=== PATIENT | female | born 1960 | race Caucasian/White ===

== ENCOUNTER 2021-11-22 11:56 | Day surgery (SDC) | payer MEDICARE, MEDICAID ==
[2021-11-22 15:26] LABS: CSF Source CSF; Clarity Clear (Clear); Tube # 4
[2021-11-22 15:31] VITALS: BP 127/83
[2021-11-22 15:50] LABS: CSF, Glucose 124 mg/dl (40-70); CSF, Protein 51 mg/dL (15-40)
== END 2021-11-22 15:40 | disposition home or self-care (01) ==
LOC: RAD 11:56
PROVIDERS: ATTEND Surgery
PROC: 009U3ZX Drainage of Spinal Canal, Percutaneous Approach, Diagnostic (ICD-10-PCS; principal; 2021-11-22)
DX: G91.2 (Idiopathic) normal pressure hydrocephalus (principal); Z79.4 Long term (current) use of insulin; Z79.84 Long term (current) use of oral hypoglycemic drugs; Z79.899 Other long term (current) drug therapy; Z88.2 Allergy status to sulfonamides; Z88.5 Allergy status to narcotic agent
CPT/HCPCS: 62270; 82945; 84157; 87070; 87205; 89051

== ENCOUNTER 2022-02-04 11:15 | Inpatient (IN) | payer OTHER, MEDICAID ==
[2022-02-06 14:14] VITALS: BMI 41.0
[2022-02-07] MEDS ORDERED: Lidocaine 0.5%/Epinephrine 1:200,000 50 ml Vial ONE (06:44)
[2022-02-07] MEDS ORDERED: Bupivacaine/Epinephrine 0.25% 30 ML VIAL ONE (06:44)
[2022-02-07] MEDS ORDERED: Bacitracin Zinc Ointment 30 gm TUBE ONE (06:44)
[2022-02-07] MEDS ORDERED: fentaNYL Citrate/PF 100 MCG/2 ML SYRINGE ONE (06:51)
[2022-02-07] MEDS ORDERED: Sodium Chloride 0.9% 100 ML ONE (07:21)
[2022-02-07] MEDS ORDERED: CEFAZOLIN 2 GM VIAL ONE (07:21)
[2022-02-07] MEDS ORDERED: Midazolam HCl 2 mg/2 ml Vial ONE (07:23)
[2022-02-07] MEDS ORDERED: Scopolamine 1.5 mg/72 hour Patch ONE (07:32)
[2022-02-07] MEDS ORDERED: Albuterol Sulfate HFA (OR ONLY) ONE (07:38)
[2022-02-07] MEDS ORDERED: hydrALAZINE 20 MG/ML VIAL SLOW IVP PRN (07:58)
[2022-02-07] MEDS ORDERED: Cepastat Lozenges 1 LOZ PO PRN (07:58)
[2022-02-07] MEDS ORDERED: ceFAZolin 2 GM/Dextrose 50 ML 2 GM in Premix Bag 1 BAG IVPB SCH (08:00)
[2022-02-07] MEDS ORDERED: HYDROcodone/Acetaminophen 5/325 mg Tablet PO PRN (08:07)
[2022-02-07] MEDS ORDERED: traMADol HCl 50 MG TAB PO PRN (08:07)
[2022-02-07] MEDS ORDERED: Fentanyl 100 MCG/2 ML VIAL SLOW IVP PRN (08:08)
[2022-02-07] MEDS ORDERED: Non-Formulary Item 1 EACH (Benzonatate [Benzonatate] 200 MG Capsule) PO PRN (08:09)
[2022-02-07] MEDS ORDERED: Albuterol Sulfate 2.5 mg/3 ml Neb NEB PRN ×2 (08:09→08:35)
[2022-02-07] MEDS ORDERED: ALPRAZolam 1 MG TAB PO PRN (08:09)
[2022-02-07] MEDS ORDERED: Promethazine HCl 12.5 MG in Sodium Chloride 0.9% 50 ML IVPB PRN (08:09)
[2022-02-07] MEDS ORDERED: Non-Formulary Item 1 EACH (Albuterol Sulfate Hfa (Or) 200 PUFF Inh) INH PRN (08:09)
[2022-02-07] MEDS ORDERED: PROPOFOL 200 MG/20 ML VIAL ONE (08:12)
[2022-02-07] MEDS ORDERED: Ondansetron PF 4 MG/2 ML Vial ONE (08:12)
[2022-02-07] MEDS ORDERED: Lidocaine 1% PF 5 ML VIAL ONE (08:12)
[2022-02-07] MEDS ORDERED: Dexamethasone 20 MG/5 ML VIAL ONE (08:12)
[2022-02-07] MEDS ORDERED: Rocuronium Bromide 10 MG/ML (10ML VIAL) ONE (08:12)
[2022-02-07] MEDS ORDERED: Glycopyrrolate 0.2 MG/ML 5 ML SYRINGE ONE (08:12)
[2022-02-07] MEDS ORDERED: ePHEDrine 50 MG/ML VIAL ONE (08:12)
[2022-02-07] MEDS ORDERED: Benzonatate 100 MG CAP PO PRN (08:35)
[2022-02-07] MEDS ORDERED: Non-Formulary Item 1 EACH (Fluticasone Propionate [Flonase Allergy Relief] 9.9 ML Bottle) EA NARE SCH (09:00)
[2022-02-07] MEDS ORDERED: Non-Formulary Item 1 EACH (Valacyclovir Hcl [Valacyclovir] 1,000 MG Tablet) PO SCH (09:00)
[2022-02-07] MEDS ORDERED: Insulin Glargine 30 UNITS/0.3 ML VIAL SC SCH (09:00)
[2022-02-07] MEDS ORDERED: Non-Formulary Item 1 EACH (Insulin Degludec [Tresiba Flextouch U-200] 200 UNIT/ML Insuln. SQ SCH (09:00)
[2022-02-07] MEDS ORDERED: Ergocalciferol 1.25 MG(50,000 UNITS) CAP PO SCH (09:00)
[2022-02-07] MEDS ORDERED: Non-Formulary Item 1 EACH (Fluticasone/Vilanterol [Breo Ellipta] 100 MCG/25 MCG Blst.W.De INH SCH (09:00)
[2022-02-07] MEDS ORDERED: Non-Formulary Item 1 EACH (Magnesium Oxide [Magnesium] 400 MG Tablet) PO SCH (09:00)
[2022-02-07] MEDS ORDERED: Non-Formulary Item 1 EACH (Omeprazole [Omeprazole] 40 MG Capsule.Dr) PO SCH (09:00)
[2022-02-07] MEDS ORDERED: Non-Formulary Item 1 EACH (Losartan/Hydrochlorothiazide [Losartan-Hctz 100-12.5 Mg Tab] 1 PO SCH (09:00)
[2022-02-07] MEDS ORDERED: Non-Formulary Item 1 EACH (Metformin Hcl [Metformin Er Gastric] 1,000 MG Tabergr24h) PO SCH (09:00)
[2022-02-07] MEDS ORDERED: Ondansetron HCl/PF 4 MG/2 ML Vial IVP PRN (10:12)
[2022-02-07] MEDS ORDERED: Promethazine HCl 25 MG/ML VIAL IM PRN (10:12)
[2022-02-07] MEDS ORDERED: Promethazine HCl 25 MG/ML VIAL IVPB PRN (10:12)
[2022-02-07] MEDS ORDERED: Fentanyl 100 MCG/2 ML VIAL ONE (11:24)
[2022-02-07] MEDS ORDERED: CEFAZOLIN 2 GM in Sodium Chloride 0.9% 100 ML IVPB SCH ×2 (14:00→22:00)
[2022-02-07] MEDS: Sodium Chloride 0.9% 1,000 ML IV SCH ×2 (15:12→21:02)
[2022-02-07] MEDS: Amlodipine 10 MG TAB PO SCH (15:12)
[2022-02-07] MEDS: glipiZIDE 10 MG TAB PO SCH ×2 (15:13→20:57)
[2022-02-07] MEDS: Losartan 25 MG TAB PO SCH (15:13)
[2022-02-07] MEDS: Citalopram 20 MG TAB PO SCH (15:13)
[2022-02-07] MEDS: Fluticasone Propionate Nasal Spray 16 gm Bottle NASAL SCH ×2 (15:13)
[2022-02-07] MEDS: Hydrochlorothiazide 25 MG TAB PO SCH (15:13)
[2022-02-07] MEDS: valACYclovir 500 MG TAB PO SCH (15:14)
[2022-02-07] MEDS: Magnesium Oxide 400 MG TAB PO SCH (15:14)
[2022-02-07] MEDS: Oxybutynin 5 MG TAB PO SCH (15:14)
[2022-02-07] MEDS: metFORMIN 500 MG TAB PO SCH ×2 (15:14→20:57)
[2022-02-07] MEDS: CEFAZOLIN 2 GM in Sodium Chloride 0.9% 100 ML IVPB SCH (16:16)
[2022-02-07] MEDS: Mometasone 100 MCG/Formoterol 5 MCG 120 PUFF INHALER INH SCH (19:11)
[2022-02-07] MEDS: Acetaminophen 325 MG TAB PO PRN (20:57)
[2022-02-07] MEDS ORDERED: Atorvastatin Calcium 20 MG TAB PO SCH (21:00)
[2022-02-07] MEDS ORDERED: Non-Formulary Item 1 EACH (Pravastatin Sodium [Pravastatin Sodium] 80 MG Tablet) PO SCH (21:00)
[2022-02-08] MEDS: CEFAZOLIN 2 GM in Sodium Chloride 0.9% 100 ML IVPB SCH ×2 (00:07→10:10)
[2022-02-08] MEDS: Mometasone 100 MCG/Formoterol 5 MCG 120 PUFF INHALER INH SCH (06:55)
[2022-02-08] MEDS: metFORMIN 500 MG TAB PO SCH (10:07)
[2022-02-08] MEDS: Magnesium Oxide 400 MG TAB PO SCH (10:08)
[2022-02-08] MEDS: Losartan 25 MG TAB PO SCH (10:08)
[2022-02-08] MEDS: valACYclovir 500 MG TAB PO SCH (10:08)
[2022-02-08] MEDS: Hydrochlorothiazide 25 MG TAB PO SCH (10:09)
[2022-02-08] MEDS: Amlodipine 10 MG TAB PO SCH (10:09)
[2022-02-08] MEDS: Citalopram 20 MG TAB PO SCH (10:10)
[2022-02-08] MEDS: glipiZIDE 10 MG TAB PO SCH (10:10)
[2022-02-08] MEDS: Oxybutynin 5 MG TAB PO SCH (10:10)
[2022-02-08 11:58] VITALS: TEMP 98.2
[2022-02-08] MEDS: Acetaminophen 325 MG TAB PO PRN (14:10)
[2022-02-08] MEDS: Fluticasone Propionate Nasal Spray 16 gm Bottle NASAL SCH ×2 (14:11)
[2022-02-08] MEDS: Sodium Chloride 0.9% 1,000 ML IV SCH (14:13)
[2022-02-08 15:53] VITALS: BP 112/69
== END 2022-02-08 16:50 | disposition home or self-care (01) | DRG 33 ==
LOC: SURG A 02-07 06:36
PROVIDERS: ADMIT Surgery; ATTEND Surgery
PROC: 00160J6 Bypass Cerebral Ventricle to Peritoneal Cavity with Synthetic Substitute, Open Approach (ICD-10-PCS; principal; 2022-02-07)
DX: G91.2 (Idiopathic) normal pressure hydrocephalus (principal); Z20.822 Contact with and (suspected) exposure to COVID-19; M54.50 Low back pain, unspecified; M54.2 Cervicalgia; N28.1 Cyst of kidney, acquired; M48.062 Spinal stenosis, lumbar region with neurogenic claudication; M71.30 Other bursal cyst, unspecified site; I35.0 Nonrheumatic aortic (valve) stenosis; G47.33 Obstructive sleep apnea (adult) (pediatric); F17.210 Nicotine dependence, cigarettes, uncomplicated; E11.42 Type 2 diabetes mellitus with diabetic polyneuropathy; E11.51 Type 2 diabetes mellitus with diabetic peripheral angiopathy without gangrene; E78.2 Mixed hyperlipidemia; I10 Essential (primary) hypertension; J44.9 Chronic obstructive pulmonary disease, unspecified; E55.9 Vitamin D deficiency, unspecified; F41.1 Generalized anxiety disorder; Z88.2 Allergy status to sulfonamides; Z88.5 Allergy status to narcotic agent; Z88.6 Allergy status to analgesic agent; Z79.82 Long term (current) use of aspirin; Z88.8 Allergy status to other drugs, medicaments and biological substances; Z79.899 Other long term (current) drug therapy; Z79.84 Long term (current) use of oral hypoglycemic drugs; Z79.4 Long term (current) use of insulin; Z90.710 Acquired absence of both cervix and uterus; Z98.51 Tubal ligation status; Z83.3 Family history of diabetes mellitus
CPT/HCPCS: 36416; 70450; 80048; 85027; 85610; 85730; 87811; C1729; C1750; C1751; J0690; J1100; J2001; J2250; J2405; J2704; J2710; J3010; J3370; J3490; J7050

== ENCOUNTER 2022-02-04 11:17 | Outpatient (CLI) | payer MEDICARE, MEDICAID ==
[2022-02-04 12:30] LABS: Hemoglobin 10.4 g/dL (12.0-15.5); Mean Corpuscular HGB CONC 32.8 g/dL (32.0-36.0); Mean Corpuscular Hemoglobin 28.7 pg (27.0-33.0); Mean Corpuscular Volume 87.3 fl (81.6-98.3); Mean Platelet Volume 9.7 fl (7.4-10.4); Platelet Count 387 10x3/uL (150-450); RBC Distribution Width 14.4 % (11.5-14.5); Red Blood Cell (RBC) Count 3.63 10x6/uL (3.90-5.03); White Blood Cell (WBC) Count 10.5 10x3/uL (3.5-10.5)
[2022-02-04 12:53] LABS: PTT 26.7 sec (22.0-33.0); Prothrombin Time 10.7 sec (9.5-12.1)
[2022-02-04 12:55] LABS: Anion Gap 17 mmol/L (10-20); BUN (Urea Nitrogen) 16 mg/dL (9.8-20.1); Calc. Creatinine Clearance 0 mL/min (70-130); Calcium 9.4 mg/dL (7.8-10.44); Carbon Dioxide 24 mmol/L (23-31); Chloride 102 mmol/L (98-107); Estimated GFR 63; Glucose 117 mg/dL (80-115); Potassium 4.2 mmol/L (3.5-5.1); Sodium 139 mmol/L (136-145)
== END 2022-02-04 11:18 | disposition home or self-care (01) ==
LOC: LABBT 11:17
PROVIDERS: ATTEND Surgery
DX: Z01.812 Encounter for preprocedural laboratory examination (principal); G91.9 Hydrocephalus, unspecified; Z20.822 Contact with and (suspected) exposure to COVID-19
CPT/HCPCS: 80048; 85027; 85610; 85730; 87811

== ENCOUNTER 2022-03-12 12:39 | Outpatient (CLI) | payer OTHER | END 2022-03-12 12:40 | disposition home or self-care (01) | LOC: CT 12:39 | PROVIDERS: ATTEND Surgery | DX: G91.9 Hydrocephalus, unspecified (principal); Z98.2 Presence of cerebrospinal fluid drainage device | CPT/HCPCS: 70450 ==

== ENCOUNTER 2022-04-04 14:07 | Outpatient (CLI) | payer OTHER, MEDICAID | END 2022-04-04 14:08 | disposition home or self-care (01) | LOC: CT 14:07 | PROVIDERS: ATTEND Surgery | DX: I62.00 Nontraumatic subdural hemorrhage, unspecified (principal) | CPT/HCPCS: 70450 ==

== ENCOUNTER 2022-05-15 07:46 | Outpatient (CLI) | payer OTHER | END 2022-05-15 07:47 | disposition home or self-care (01) | LOC: CT 07:46 | PROVIDERS: ATTEND Surgery | DX: I62.02 Nontraumatic subacute subdural hemorrhage (principal); R29.6 Repeated falls; G93.89 Other specified disorders of brain | CPT/HCPCS: 70450 ==

== ENCOUNTER 2022-05-15 09:05 | Outpatient (CLI) | payer OTHER | END 2022-05-15 09:06 | disposition home or self-care (01) | LOC: TBSIIMAG 09:05 | PROVIDERS: ATTEND Surgery | DX: M47.816 Spondylosis without myelopathy or radiculopathy, lumbar region (principal); M51.36 Other intervertebral disc degeneration, lumbar region; M43.8X6 Other specified deforming dorsopathies, lumbar region | CPT/HCPCS: 72110; 72148 ==

== ENCOUNTER 2022-05-15 11:29 | Inpatient (IN) | payer OTHER, MEDICAID ==
[2022-05-15] MEDS ORDERED: fentaNYL PF 100 MCG/2 ML SYRINGE ONE (12:12)
[2022-05-15] MEDS ORDERED: Bupivacaine HCl 0.5%/Epinephrine 1:200,000/PF 30 ml Vial ONE (12:17)
[2022-05-15] MEDS ORDERED: Thrombin 5000 UNITS/5 ML VIAL ONE (12:17)
[2022-05-15] MEDS ORDERED: Bacitracin Zinc Ointment 30 gm TUBE ONE (12:17)
[2022-05-15] MEDS ORDERED: Ondansetron PF 4 MG/2 ML Vial ONE (13:07)
[2022-05-15] MEDS ORDERED: NEOSTIGMINE 3 MG/3 ML SYR 3 MG/3 ML SYRINGE ONE (13:07)
[2022-05-15] MEDS ORDERED: PROPOFOL 200 MG/20 ML VIAL ONE (13:07)
[2022-05-15] MEDS ORDERED: Rocuronium Bromide 10 MG/ML (10ML VIAL) ONE (13:07)
[2022-05-15] MEDS ORDERED: ePHEDrine 50 MG/ML VIAL ONE (13:07)
[2022-05-15] MEDS ORDERED: Glycopyrrolate 0.2 MG/ML 5 ML SYRINGE ONE (13:07)
[2022-05-15] MEDS ORDERED: PHENYLEPHRINE-NS 100 MCG/ML 10 ML SYRINGE ONE (13:07)
[2022-05-15 13:20] LABS: SARS-CoV-2 NAA Rapid Test Not Detected (NotDetected)
[2022-05-15] MEDS ORDERED: Insulin Regular 300 UNITS/3 ML VIAL ONE (13:31)
[2022-05-15] MEDS ORDERED: HYDROcodone/Acetaminophen 7.5/325 mg Tablet PO PRN (13:38)
[2022-05-15] MEDS ORDERED: Acetaminophen 325 MG TAB PO PRN (13:42)
[2022-05-15] MEDS ORDERED: hydrALAZINE 20 MG/ML VIAL SLOW IVP PRN (13:42)
[2022-05-15] MEDS ORDERED: traMADol HCl 50 MG TAB PO PRN (13:45)
[2022-05-15] MEDS ORDERED: Promethazine HCl 12.5 MG in Sodium Chloride 0.9% 50 ML IVPB PRN (13:45)
[2022-05-15] MEDS ORDERED: Albuterol Sulfate 2.5 mg/3 ml Neb NEB PRN (13:46)
[2022-05-15] MEDS ORDERED: Non-Formulary Item 1 EACH (Albuterol Sulfate Hfa (Or) 200 PUFF Inh) INH PRN (13:46)
[2022-05-15] MEDS ORDERED: Benzonatate 100 MG CAP PO PRN (14:11)
[2022-05-15] MEDS ORDERED: Ondansetron HCl/PF 4 MG/2 ML Vial IVP PRN (14:57)
[2022-05-15] MEDS ORDERED: Promethazine HCl 25 MG/ML VIAL IM PRN (14:57)
[2022-05-15] MEDS ORDERED: Promethazine HCl 25 MG/ML VIAL IVPB PRN (14:57)
[2022-05-15] MEDS ORDERED: levETIRAcetam in NS 1,000 MG in Premix Bag 1 BAG IVPB SCH (15:00)
[2022-05-15] MEDS ORDERED: HUMULIN R 100 UNITS in Sodium Chloride 0.9% 100 ML IVPB SCH (15:00)
[2022-05-15] MEDS ORDERED: diphenhydrAMINE 25 MG CAP PO PRN (15:47)
[2022-05-15] MEDS ORDERED: FENTANYL 50 MCG/ML 1 ML VIAL ONE ×2 (15:51→18:27)
[2022-05-15] MEDS ORDERED: levETIRAcetam 500 MG/5 ML VIAL SLOW IVP SCH (16:15)
[2022-05-15 20:33] VITALS: BMI 41.3
[2022-05-15] MEDS: glipiZIDE 10 MG TAB PO SCH (21:31)
[2022-05-15] MEDS: CEFAZOLIN 2 GM in Sodium Chloride 0.9% 100 ML IVPB SCH ×2 (21:34→23:07)
[2022-05-15] MEDS: metFORMIN 500 MG TAB PO SCH (21:35)
[2022-05-15] MEDS: Sodium Chloride 0.9% 1,000 ML IV SCH (22:05)
[2022-05-15] MEDS: levETIRAcetam 500 MG TAB PO SCH (22:05)
[2022-05-15] MEDS: Atorvastatin Calcium 20 MG TAB PO SCH (22:06)
[2022-05-16 04:04] LABS: #Basophils 0.1 thou/uL (0.0-0.2); #Eosinphils 0.2 thou/uL (0.0-0.7); #Lymphocytes 2.5 thou/uL (1.20-3.40); #Monocytes 0.6 thou/uL (0.11-0.59); #Neutrophils 9.2 thou/uL (1.40-6.50); %Basophils 0.5 % (0.0-1.0); %Lymphocytes 19.5 % (21.0-51.0); %Neutrophils 73.1 % (42.0-75.0); Hemoglobin 9.9 g/dL (12.0-16.0); Mean Corpuscular HGB CONC 31.5 g/dL (32.0-36.0); Mean Corpuscular Hemoglobin 28.8 pg (27.0-31.0); Mean Corpuscular Volume 91.4 fl (78.0-98.0); Mean Platelet Volume 8.3 fL (7.4-10.4); Platelet Count 285 thou/uL (130-400); RBC Distribution Width 14.2 % (11.5-14.5); Red Blood Cell (RBC) Count 3.45 mill/uL (4.20-5.40); White Blood Cell (WBC) Count 12.6 thou/uL (4.8-10.8)
[2022-05-16 04:29] LABS: Anion Gap 12 mmol/L (10-20); BUN (Urea Nitrogen) 13 mg/dL (9.8-20.1); Calc. Creatinine Clearance 79 mL/min (70-130); Calcium 8.7 mg/dL (7.8-10.44); Carbon Dioxide 26 mmol/L (23-31); Chloride 105 mmol/L (98-107); Estimated GFR 55; Glucose 169 mg/dL (80-115); Potassium 3.8 mmol/L (3.5-5.1); Sodium 139 mmol/L (136-145)
[2022-05-16] MEDS: Sodium Chloride 0.9% 1,000 ML IV SCH ×2 (05:25→15:56)
[2022-05-16] MEDS: Mometasone 100 MCG/Formoterol 5 MCG 120 PUFF INHALER INH SCH (06:29)
[2022-05-16] MEDS: CEFAZOLIN 2 GM in Sodium Chloride 0.9% 100 ML IVPB SCH ×3 (08:04→23:32)
[2022-05-16] MEDS: levETIRAcetam 500 MG TAB PO SCH ×2 (08:07→20:19)
[2022-05-16] MEDS: Magnesium Oxide 400 MG TAB PO SCH (08:10)
[2022-05-16] MEDS: glipiZIDE 10 MG TAB PO SCH ×2 (08:27→19:38)
[2022-05-16] MEDS: Fluticasone Propionate Nasal Spray 16 gm Bottle NASAL SCH (08:27)
[2022-05-16] MEDS: metFORMIN 500 MG TAB PO SCH (08:27)
[2022-05-16] MEDS: Citalopram 20 MG TAB PO SCH (08:28)
[2022-05-16] MEDS: Amlodipine 10 MG TAB PO SCH (08:28)
[2022-05-16] MEDS: Oxybutynin 5 MG TAB PO SCH (08:32)
[2022-05-16] MEDS ORDERED: Labetalol HCl 100 MG/20 ML VIAL SLOW IVP PRN (08:49)
[2022-05-16] MEDS ORDERED: Hydrochlorothiazide 25 MG TAB PO SCH (09:00)
[2022-05-16] MEDS ORDERED: Electrolyte Replacement Protocol FS PRN (09:00)
[2022-05-16] MEDS ORDERED: FLU VACC QS2022-23(6MOS UP)/PF 60 MCG/0.5 ML SYRINGE IM ONE (09:00)
[2022-05-16] MEDS ORDERED: Losartan 25 MG TAB PO SCH (09:00)
[2022-05-16] MEDS ORDERED: Insulin Glargine 30 UNITS/0.3 ML VIAL SC SCH (09:00)
[2022-05-16] MEDS: valACYclovir 500 MG TAB PO SCH (10:14)
[2022-05-16] MEDS ORDERED: Dextrose 50% Abboject 50 ML SYRINGE SLOW IVP PRN (10:33)
[2022-05-16] MEDS ORDERED: Dextrose 5% in Water 1,000 ML IV PRN (10:33)
[2022-05-16] MEDS ORDERED: HumaLOG 300 UNITS/3 ML VIAL SC PRN (10:33)
[2022-05-16] MEDS ORDERED: hydrALAZINE 20 MG/ML VIAL SLOW IVP PRN (10:55)
[2022-05-16] MEDS: ALPRAZolam 1 MG TAB PO PRN ×2 (11:00→18:27)
[2022-05-16] MEDS: HumaLOG 300 UNITS/3 ML VIAL SC PRN ×2 (11:02→16:56)
[2022-05-16] MEDS: Insulin Glargine 30 UNITS/0.3 ML VIAL SC SCH (20:17)
[2022-05-16] MEDS: Atorvastatin Calcium 20 MG TAB PO SCH (20:19)
[2022-05-17] MEDS: Sodium Chloride 0.9% 1,000 ML IV SCH ×2 (05:52→19:53)
[2022-05-17] MEDS: Mometasone 100 MCG/Formoterol 5 MCG 120 PUFF INHALER INH SCH (07:05)
[2022-05-17] MEDS: CEFAZOLIN 2 GM in Sodium Chloride 0.9% 100 ML IVPB SCH (08:08)
[2022-05-17] MEDS: Insulin Glargine 30 UNITS/0.3 ML VIAL SC SCH (08:11)
[2022-05-17] MEDS: levETIRAcetam 500 MG TAB PO SCH (08:12)
[2022-05-17] MEDS: Oxybutynin 5 MG TAB PO SCH (08:12)
[2022-05-17] MEDS: Citalopram 20 MG TAB PO SCH (08:12)
[2022-05-17] MEDS: Fluticasone Propionate Nasal Spray 16 gm Bottle NASAL SCH (08:13)
[2022-05-17] MEDS: Amlodipine 10 MG TAB PO SCH (08:13)
[2022-05-17] MEDS: Magnesium Oxide 400 MG TAB PO SCH (08:13)
[2022-05-17] MEDS: HumaLOG 300 UNITS/3 ML VIAL SC PRN ×3 (08:17→17:25)
[2022-05-17] MEDS: ALPRAZolam 1 MG TAB PO PRN ×2 (08:34→17:34)
[2022-05-17] MEDS ORDERED: valACYclovir 500 MG TAB PO SCH (09:00)
[2022-05-17] MEDS: valACYclovir 500 MG TAB PO SCH (10:12)
[2022-05-17] MEDS: glipiZIDE 10 MG TAB PO SCH (10:43)
[2022-05-17 19:25] VITALS: BP 147/76; TEMP 98.5
[2022-05-18] MEDS ORDERED: Nicotine 21 MG PATCH TD SCH (09:00)
[2022-05-21] MEDS ORDERED: Ergocalciferol 1.25 MG(50,000 UNITS) CAP PO SCH (09:00)
== END 2022-05-17 19:45 | DRG 26 ==
LOC: SDC 11:29 → CCU 20:15 → SJJU 05-17 12:09
PROVIDERS: ADMIT Surgery; ATTEND Surgery
PROC: 00C40ZZ Extirpation of Matter from Intracranial Subdural Space, Open Approach (ICD-10-PCS; principal; 2022-05-15)
DX: S06.5XAA Traumatic subdural hemorrhage with loss of consciousness status unknown, initial encounter (principal); N17.9 Acute kidney failure, unspecified; W19.XXXA Unspecified fall, initial encounter; F41.9 Anxiety disorder, unspecified; J44.9 Chronic obstructive pulmonary disease, unspecified; F17.210 Nicotine dependence, cigarettes, uncomplicated; E11.65 Type 2 diabetes mellitus with hyperglycemia; R29.6 Repeated falls; G93.89 Other specified disorders of brain; Z20.822 Contact with and (suspected) exposure to COVID-19; Z88.2 Allergy status to sulfonamides; Z88.5 Allergy status to narcotic agent; Z88.8 Allergy status to other drugs, medicaments and biological substances; Z79.84 Long term (current) use of oral hypoglycemic drugs; Z79.82 Long term (current) use of aspirin; Z79.899 Other long term (current) drug therapy; Z79.51 Long term (current) use of inhaled steroids
CPT/HCPCS: 36416; 70450; 72110; 72148; 80048; 85025; 93970; C1713; J1815; J1953; J2405; J2550; J2704; J3010; J3490; J7050; U0002

== ENCOUNTER 2022-06-20 12:10 | Outpatient (CLI) | payer OTHER | END 2022-06-20 12:11 | disposition home or self-care (01) | LOC: CT 12:10 | PROVIDERS: ATTEND Surgery | DX: S06.5XAD Traumatic subdural hemorrhage with loss of consciousness status unknown, subsequent encounter (principal) | CPT/HCPCS: 70450 ==

== ENCOUNTER 2022-07-26 11:21 | Outpatient (CLI) | payer OTHER | END 2022-07-26 11:22 | disposition home or self-care (01) | LOC: CT 11:21 | PROVIDERS: ATTEND Surgery | DX: I62.02 Nontraumatic subacute subdural hemorrhage (principal); G91.9 Hydrocephalus, unspecified | CPT/HCPCS: 70450 ==

== ENCOUNTER 2022-10-23 10:30 | Outpatient (CLI) | payer OTHER, MEDICAID | END 2022-10-23 10:31 | disposition home or self-care (01) | LOC: CT 10:30 | PROVIDERS: ATTEND Surgery | DX: G91.9 Hydrocephalus, unspecified (principal); I62.00 Nontraumatic subdural hemorrhage, unspecified; G93.89 Other specified disorders of brain | CPT/HCPCS: 70450 ==

== ENCOUNTER 2023-03-04 11:40 | Observation (INO) | payer OTHER, MEDICAID ==
[2023-03-04 12:36] LABS: Bacteria/HPF None Seen HPF (None Seen); Bilirubin Negative (Negative); Blood, Urine Trace (Negative); CAUTI Indications for Culture Alt mental st,lethar; Clarity Clear (Clear); Glucose, Urine (Dipstick) Normal (Negative); Ketone, Urine Negative (Negative); Leukocyte Negative Leu/uL (Negative); Nitrite Negative (Negative); Protein, Urine (Dipstick) 50 mg/dL (Neg-Trace); RBC/HPF 0-3 HPF (0-3); Specific Gravity, Urine 1.011 (1.002-1.036); Squamous Epithelial 0-3 HPF (0-3); Urobilinogen Normal mg/dL (Less than 2); WBC/HPF 0-3 HPF (0-3); pH, Urine 5.5 (5.0-9.0)
[2023-03-04 12:41] LABS: Urine Culture Reflex No No
[2023-03-04 12:42] LABS: Amphetamine Not Detected (NotDetected); Barbiturates Screen Not Detected (NotDetected); Benzodiazepine Screen Detected (NotDetected); Cocaine Metabolite Screen Not Detected (NotDetected); Methadone Not Detected (NotDetected); Methamphetamine Not Detected (NotDetected); Opiate Screen Not Detected (NotDetected); Oxycodone Screen Not Detected (NotDetected); Phencyclidine (PCP) Not Detected (NotDetected); THC/Cannabinoid Screen Not Detected (NotDetected); Tricyclic Screen Not Detected (NotDetected)
[2023-03-04 13:20] LABS: #Basophils 0.1 thou/uL (0.0-0.2); #Eosinphils 0.1 thou/uL (0.0-0.7); #Monocytes 0.7 thou/uL (0.11-0.59); #Neutrophils 6.1 thou/uL (1.40-6.50); %Basophils 0.5 % (0.0-1.0); %Lymphocytes 26.2 % (21.0-51.0); %Monocytes 7.1 % (0.0-10.0); %Neutrophils 64.9 % (42.0-75.0); Hematocrit 32.1 % (36.0-47.0); Hemoglobin 10.5 g/dL (12.0-16.0); Mean Corpuscular HGB CONC 32.7 g/dL (32.0-36.0); Mean Corpuscular Hemoglobin 26.9 pg (27.0-31.0); Mean Corpuscular Volume 82.1 fl (78.0-98.0); Mean Platelet Volume 8.7 fL (7.4-10.4); Platelet Count 340 10x3/uL (130-400); RBC Distribution Width 18.7 % (11.5-14.5); Red Blood Cell (RBC) Count 3.91 mill/uL (4.20-5.40); White Blood Cell (WBC) Count 9.3 10x3/uL (4.8-10.8)
[2023-03-04 13:53] LABS: Anion Gap 14 mmol/L (10-20); BUN (Urea Nitrogen) 15 mg/dL (9.8-20.1); Bilirubin, Total 0.2 mg/dL (0.2-1.2); Calc. Creatinine Clearance 0 mL/min (70-130); Calcium 9.4 mg/dL (7.6-10.4); Carbon Dioxide 24 mmol/L (23-31); Chloride 92 mmol/L (98-107); Estimated GFR 51; Glucose 166 mg/dL (80-115); Potassium 4.6 mmol/L (3.5-5.1); Sodium 125 mmol/L (136-145)
[2023-03-04 13:54] LABS: ALT (SGPT) 9 U/L (8-55); AST (SGOT) 12 U/L (5-34); Albumin 4.2 g/dL (3.4-4.8); Alkaline Phosphatase 62 U/L (40-110); Globulin 3.2 g/dL (2.4-3.5); Lipase 18 U/L (8-78); Protein, Total 7.4 g/dL (5.8-8.1); Troponin I Less than 0.010 ng/mL (< 0.028)
[2023-03-04] MEDS ORDERED: Nicotine 14 MG PATCH ONE (16:12)
[2023-03-04] MEDS ORDERED: hydrALAZINE 20 MG/ML VIAL SLOW IVP PRN (16:43)
[2023-03-04] MEDS ORDERED: Nicotine 21 MG PATCH TD SCH (16:45)
[2023-03-04] MEDS ORDERED: Dextrose 50% Abboject 50 ML SYRINGE SLOW IVP PRN (16:50)
[2023-03-04] MEDS ORDERED: Dextrose 5% in Water 1,000 ML IV PRN (16:50)
[2023-03-04] MEDS ORDERED: Glucagon 1 MG/ML KIT IM PRN (16:50)
[2023-03-04] MEDS ORDERED: HumaLOG 300 UNITS/3 ML VIAL SC PRN (16:50)
[2023-03-04] MEDS ORDERED: ALPRAZolam 1 MG TAB PO PRN (18:23)
[2023-03-04] MEDS ORDERED: Acetaminophen 325 MG TAB PO PRN (18:23)
[2023-03-04] MEDS ORDERED: Non-Formulary Item 1 EACH (Albuterol Hfa (Or) 200 PUFF Inh) INH PRN (18:23)
[2023-03-04 18:28] VITALS: BMI 39.6
[2023-03-04 19:33] LABS: Anion Gap 14 mmol/L (10-20); BUN (Urea Nitrogen) 13 mg/dL (9.8-20.1); Calc. Creatinine Clearance 83 mL/min (70-130); Calcium 9.3 mg/dL (7.8-10.44); Carbon Dioxide 21 mmol/L (23-31); Chloride 98 mmol/L (98-107); Estimated GFR 59; Glucose 73 mg/dL (80-115); Potassium 4.2 mmol/L (3.5-5.1); Sodium 129 mmol/L (136-145)
[2023-03-04] MEDS ORDERED: Atorvastatin Calcium 20 MG TAB PO SCH (21:00)
[2023-03-04] MEDS ORDERED: Sodium Chloride 0.9% 1,000 ML IV SCH (22:15)
[2023-03-05 05:05] LABS: #Eosinphils 0.1 thou/uL (0.0-0.7); #Monocytes 0.6 thou/uL (0.11-0.59); #Neutrophils 5.3 thou/uL (1.40-6.50); %Basophils 0.4 % (0.0-1.0); %Eosinophils 0.8 % (0.0-10.0); %Lymphocytes 27.2 % (21.0-51.0); %Monocytes 7.4 % (0.0-10.0); %Neutrophils 63.8 % (42.0-75.0); Hematocrit 30.8 % (36.0-47.0); Hemoglobin 9.7 g/dL (12.0-16.0); Mean Corpuscular HGB CONC 31.5 g/dL (32.0-36.0); RBC Distribution Width 19.4 % (11.5-14.5); Red Blood Cell (RBC) Count 3.59 mill/uL (4.20-5.40); White Blood Cell (WBC) Count 8.3 10x3/uL (4.8-10.8)
[2023-03-05 05:20] LABS: Mean Corpuscular Volume 85.8 fl (78.0-98.0); Platelet Count 213 10x3/uL (130-400)
[2023-03-05 05:31] LABS: Anion Gap 14 mmol/L (10-20); BUN (Urea Nitrogen) 15 mg/dL (9.8-20.1); Calc. Creatinine Clearance 62 mL/min (70-130); Calcium 8.9 mg/dL (7.8-10.44); Carbon Dioxide 20 mmol/L (23-31); Cardiac Risk 5.6 (Less than 4.5); Chloride 99 mmol/L (98-107); Cholesterol 117 mg/dl (< 200 Desired); Estimated GFR 42; Glucose 277 mg/dL (80-115); HDL Cholesterol 21 mg/dL (>60 Neg Risk); LDL Cholesterol, Calculated 32 mg/dL; Potassium 4.4 mmol/L (3.5-5.1); Sodium 129 mmol/L (136-145); Triglycerides 319 mg/dL (Less than 150)
[2023-03-05] MEDS ORDERED: Mometasone 100 MCG/Formoterol 5 MCG 120 PUFF INHALER INH SCH (06:30)
[2023-03-05 08:01] VITALS: TEMP 98.3
[2023-03-05] MEDS ORDERED: Insulin Glargine 30 UNITS/0.3 ML VIAL SC SCH ×3 (09:00→21:00)
[2023-03-05] MEDS ORDERED: Oxybutynin 5 MG TAB PO SCH (09:00)
[2023-03-05] MEDS ORDERED: Aspirin 81 mg Enteric Coated Tablet PO SCH (09:00)
[2023-03-05] MEDS ORDERED: Fluticasone Propionate Nasal Spray 16 gm Bottle NASAL SCH (09:00)
[2023-03-05] MEDS ORDERED: valACYclovir 500 MG TAB PO SCH (09:00)
[2023-03-05] MEDS ORDERED: Magnesium Oxide 400 MG TAB PO SCH (09:00)
[2023-03-05 12:47] VITALS: BP 126/89
[2023-03-05 13:01] LABS: Anion Gap 13 mmol/L (10-20); BUN (Urea Nitrogen) 16 mg/dL (9.8-20.1); Calc. Creatinine Clearance 69 mL/min (70-130); Calcium 9.1 mg/dL (7.8-10.44); Carbon Dioxide 23 mmol/L (23-31); Chloride 100 mmol/L (98-107); Estimated GFR 48; Glucose 261 mg/dL (80-115); Potassium 4.5 mmol/L (3.5-5.1); Sodium 131 mmol/L (136-145)
[2023-03-05] MEDS ORDERED: Nicotine 21 MG PATCH TD SCH (17:00)
== END 2023-03-05 15:39 | disposition home or self-care (01) ==
LOC: ERS 11:40 → 2SW 16:01
PROVIDERS: ADMIT Internal Medicine; ATTEND Internal Medicine
DX: R41.0 Disorientation, unspecified (principal)
CPT/HCPCS: 70450; 70551; 75809; 80048 ×3; 80053; 80061; 80306; 81001; 82962 ×2; 83036; 83690; 83735; 84443; 84484; 85025 ×2; 93005; 93306; 93880; 94640; 96360; 96372; 97116; 99285; G0378 ×3; 36415; 36416; J1650; J1815; J7050